=== PATIENT | male | born 1960 | race Caucasian/White ===

== ENCOUNTER 2018-09-29 18:26 | Emergency (ER) | payer BC ==
[2018-09-29] MEDS ORDERED: Azithromycin 250 MG Tab PO ONE (19:26)
[2018-09-29] MEDS ORDERED: Ondansetron 4 MG Tab.DIS PO ONE (19:28)
--- NOTE | 2018-09-29 22:24 | ER ---
REASON FOR CLINIC VISIT: Cough, fever, and myalgias. HISTORY OF PRESENT ILLNESS: This 57-year-old man began to feel generalized malaise approximately 5 days ago. He describes it as "feeling achy." He further went on to say that last night it hit him "big time" with headache, coughing which has been productive of increasing amounts of green, thick sputum. He has had post-tussive emesis x2, but he has also had nausea, particularly bothersome during coughing paroxysms. He denies any diarrhea. His biggest complaint has been of myalgias. He has had a fever of 100 to 101 at home. He has been taking NyQuil. He has no history of smoking. He has never had pneumonia in several years. PAST MEDICAL HISTORY: Unremarkable. CURRENT MEDICATIONS: None. ALLERGIES: To codeine and niacin. REVIEW OF SYSTEMS: Pertinent positives and negatives as in the HPI. PHYSICAL EXAMINATION: VITAL SIGNS: He is afebrile, pulse of 83, blood pressure 122/84, respiratory rate 16, O2 sats 93% and later 95%. HEENT: Head is normocephalic. No conjunctivitis is noted. TMs are normal. Oropharynx is normal. NECK: Supple. No adenopathy is noted. CHEST: He has good air exchange bilaterally. He did have a few rhonchi at his left base. No rales or wheezes were noted. CARDIAC: Regular rate without murmur. ABDOMEN: Soft and nontender. No hepatosplenomegaly. EXTREMITIES: Normal pulses. No edema. SKIN: No rashes. LABORATORY DATA: An influenza swab was obtained for influenza A and B and this was negative. FINAL DIAGNOSIS: Community-acquired pneumonia. PLAN: Z-Sofi [place] ODT 4 mg x1. I also recommended hot steamy showers and plenty of clear liquids. Tylenol and ibuprofen as needed. He should stay away from work for the next day or two. I also recommended Delsym [id number] for symptomatic coughing relief. He knows that should his symptoms worsen at any time, he should return or should they persist beyond after his course of antibiotics is completed, he should probably be rechecked as well. All questions were answered. He understands and agrees. MMODAL /[id number]
== END 2018-09-29 19:50 | disposition home or self-care (01) ==
LOC: JD.ED 18:26
DX: J18.9 Pneumonia, unspecified organism (principal); Z88.5 Allergy status to narcotic agent; Z88.8 Allergy status to other drugs, medicaments and biological substances
CPT/HCPCS: 87804; 99283; A9270

== ENCOUNTER 2020-05-21 11:11 | Emergency (ER) | payer BC ==
--- NOTE | 2020-05-21 11:17 | EDM.PDOC ---
ED HPI GENERAL MEDICAL PROBLEM - General Chief Complaint: Chest Pain Stated Complaint: CHEST PAIN Time Seen by Provider: 05/21/20 11:16 Source of Information: Reports: Patient History Limitations: Reports: No Limitations - History of Present Illness INITIAL COMMENTS - FREE TEXT/NARRATIVE: 59-year-old male presents to the ED for evaluation of central chest pain that started about 0800 hrs. this morning. He states he was already up for the day when the chest pressure discomfort came on and it lasted about an hour. He sat around and it seemed to gradually dissipate. He has a strong history of coronary disease having had 2 stents placed in [place] approximately 10 years ago and 3 stents placed in [place] about 5 years ago for total of 5 stents. He is on a low-cholesterol diet. He is no longer on a blood thinner. At present he is pain-free. Denies cough sputum production shortness of breath orthopnea or PND. Denies any burping or belching to relieve the discomfort. Rarely gets heartburn. No odynophagia while eating his breakfast after the pain started. Onset: Today, Sudden Onset Date: 05/21/20 Onset Time: 08:00 Duration: Hour(s):, Other (Pain-free at the time he was seen in the ED.) Location: Reports: Chest (Trolled chest discomfort with no radiation through to his back up into his neck or arms.). Denies: Head, Face Quality: Reports: Pressure Severity: Mild (Mild pressure discomfort rated at the most a 3 out of 10.) Improves with: Reports: Other (It went away on its own.) Worsens with: Reports: None, Other Context: Reports: Other. Denies: Activity, Exercise (Walking and moving did not seem to make the pain worse.), Lifting, Sick Contact, Trauma Associated Symptoms: Reports: Chest Pain (Spontaneous occurrence central chest pressure discomfort) Treatments [employer] INST[employer]ER: Reports: Other (see below) (His regular meds which she cannot remember all of.) Left Upper Chest Pain Score (Numeric/FACES): 0 - Related Data Allergies Allergy/AdvReac Type Severity Reaction Status Date / Time codeine Allergy Insomnia Verified 05/21/20 11:20 niacin Allergy Hyperactivi Verified 05/21/20 11:20 ty Home Meds: Home Meds Metoprolol Succinate 50 mg PO 05/21/20 [History] Rosuvastatin Calcium [Crestor] 40 mg PO DAILY 05/21/20 [History] lisinopriL [Lisinopril] 05/21/20 [History] Past Medical History - Past Health History Medical/Surgical History: Denies Medical/Surgical History Cardiovascular History: Reports: Hypertension, Stents (He had 2 stents placed approximately 10 years ago in [place] and 3 more stents placed in [place] approximately 5 years ago at [facility] Denies: ND Endocrine/Metabolic History: Reports: Obesity/BMI 30+ Social & Family History - Family History Family Medical History: Noncontributory - Living Situation & Occupation Living situation: Reports: with Significant Other Occupation: Employed ED ROS GENERAL - Review of Systems Review Of Systems: See Below Constitutional: Denies: Fever, Chills, Malaise, Weakness, Fatigue, Decreased Appetite, Weight Loss HEENT: Reports: Glasses Respiratory: Denies: Wheezing, Pleuritic Chest Pain, Cough, Sputum, Hemoptysis Cardiovascular: Reports: Chest Pain, Blood Pressure Problem, Dyspnea on Exertion (On occasion.). Denies: Claudication (See history of present illness), Edema, Lightheadedness, Orthopnea Endocrine: Reports: Fatigue (Side effect of medication.) GI/Abdominal: Reports: Other (Very rare). Denies: Constipation, Diarrhea, Decreased Appetite, Nausea ( esophageal reflux.), Vomiting : Reports: Frequency, Other (Nocturia usually x2) Musculoskeletal: Reports: Joint Pain (Occasional pain in knees hips back and neck.) Skin: Reports: No Symptoms Neurological: Reports: No Symptoms Psychiatric: Reports: No Symptoms Hematologic/Lymphatic: Reports: No Symptoms Immunologic: Reports: No Symptoms ED EXAM, GENERAL - Physical Exam Exam: See Below Exam Limited By: No Limitations General Appearance: Alert, WD/WN, No Apparent Distress, Other (Temperature is 36.3 pulse is 78 and sinus BP 158/91. Respiratory to 16 with pulse oximetry of 95% room air) Eye Exam: Bilateral Eye: Normal Inspection, PERRL Throat/Mouth: Normal Inspection, Normal Lips, Normal Teeth, Normal Oropharynx Head: Atraumatic, Normocephalic Neck: Normal Inspection, Supple, Non-Tender, Full Range of Motion. No: Carotid Bruit, Lymphadenopathy (L), Lymphadenopathy (R) Respiratory/Chest: No Respiratory Distress, Lungs Clear, Normal Breath Sounds, Chest Non-Tender Cardiovascular: Normal Peripheral Pulses, Regular Rate, Rhythm, No Edema, No Gallop, No Murmur, No Rub Peripheral Pulses: 2+: Carotid (L), Carotid (R), Posterior Tibial (L), Posterior Tibial (R), Dorsalis Pedis (L), Dorsalis Pedis (R) GI/Abdominal: Normal Bowel Sounds, Soft, Non-Tender, No Organomegaly, No Mass, Pelvis Stable, Other (Abdominal girth limits ability to palpate solid organs. He has a minimal umbilical hernia that causes him no discomfort.) Back Exam: Normal Inspection, Full Range of Motion. No: CVA Tenderness (L), CVA Tenderness (R) Extremities: Normal Inspection, Normal Range of Motion, Non-Tender, No Pedal Edema Neurological: Alert, Oriented, CN II-XII Intact, Normal Cognition Psychiatric: Normal Affect, Normal Mood Skin Exam: Warm, Dry, Intact, Normal Color, No Rash EKG INTERPRETATION EKG Date: 05/21/20 Time: 11:16 Rhythm: NSR Rate (Beats/Min): 78 [place]: Normal P-Wave: Present QRS: Other (Nonspecific intraventricular conduction delay) ST-T: Normal QT: Normal EKG Interpretation Comments: Normal ECG no signs of ischemia. Course - Vital Signs Last Recorded V/S: Last Vital Signs Temp 36.3 C 05/21/20 11:16 Pulse 78 05/21/20 11:16 Resp 16 05/21/20 11:16 BP 158/91 H 05/21/20 11:16 Pulse Ox - Orders/Labs/Meds Orders: Active Orders 24 hr Category Date Time Status EKG 12 Lead [EKG Documentation Completion] [RC] STAT Care 05/21/20 11:46 Active Chest 1V Frontal [CR] Stat Exams 05/21/20 11:33 Taken Labs: Laboratory Tests 05/21/20 05/21/20 05/21/20 Range/Units 11:25 11:25 11:25 WBC 6.94 (4.23-9.07) K/mm3 RBC 5.36 (4.63-6.08) M/mm3 Hgb 16.4 (13.7-17.5) gm/dl Hct 49.0 (40.1-51.0) % MCV 91.4 (79.0-92.2) fl MCH 30.6 (25.7-32.2) pg MCHC 33.5 (32.2-35.5) g/dl RDW Std Deviation 43.5 (35.1-43.9) fL Plt Count 213 (163-337) K/mm3 MPV 10.1 (9.4-12.3) fl Neut % (Auto) 59.7 (34.0-67.9) % Lymph % (Auto) 28.1 (21.8-53.1) % [place] % (Auto) 9.9 (5.3-12.2) % Eos % (Auto) 1.9 (0.8-7.0) Baso % (Auto) 0.3 (0.1-1.2) % Neut # (Auto) 4.14 (1.78-5.38) K/mm3 Lymph # (Auto) 1.95 (1.32-3.57) K/mm3 [place] # (Auto) 0.69 (0.30-0.82) K/mm3 Eos # (Auto) 0.13 (0.04-0.54) K/mm3 Baso # (Auto) 0.02 (0.01-0.08) K/mm3 PT 10.6 (9.7-12.0) SECONDS INR 0.99 APTT 25 (22-31) SECONDS Sodium 141 (136-145) mEq/L Potassium 3.8 (3.5-5.1) mEq/L Chloride 105 (98-107) mEq/L Carbon Dioxide 25 (21-32) mEq/L Anion Gap 14.8 (5-15) BUN 15 (7-18) mg/dL Creatinine 1.1 (0.7-1.3) mg/dL Est Cr Clr Drug Dosing 74.09 mL/min Estimated GFR (MDRD) > 60 (>60) mL/min BUN/Creatinine Ratio 13.6 L (14-18) Glucose 119 H (74-106) mg/dL Calcium 8.6 (8.5-10.1) mg/dL Magnesium 1.9 (1.8-2.4) mg/dl Total Bilirubin 0.4 (0.2-1.0) mg/dL AST 16 (15-37) U/L ALT 30 (16-63) U/L Alkaline Phosphatase 69 (46-116) U/L CK-MB (CK-2) 1.6 (0-3.6) ng/ml Troponin I < 0.017 (0.00-0.056) ng/mL C-Reactive Protein 0.2 (<1.0) mg/dL NT-Pro-B Natriuret Pep (0-125) pg/mL Total Protein 6.8 (6.4-8.2) g/dl Albumin 3.8 (3.4-5.0) g/dl Globulin 3.0 gm/dL Albumin/Globulin Ratio 1.3 (1-2) Cholesterol 148 (<200) mg/dL LDL Cholesterol Direct 76 (<100) mg/dL HDL Cholesterol 45.0 (40-59) mg/dL 05/21/20 Range/Units 11:25 WBC (4.23-9.07) K/mm3 RBC (4.63-6.08) M/mm3 Hgb (13.7-17.5) gm/dl Hct (40.1-51.0) % MCV (79.0-92.2) fl MCH (25.7-32.2) pg MCHC (32.2-35.5) g/dl RDW Std Deviation (35.1-43.9) fL Plt Count (163-337) K/mm3 MPV (9.4-12.3) fl Neut % (Auto) (34.0-67.9) % Lymph % (Auto) (21.8-53.1) % [place] % (Auto) (5.3-12.2) % Eos % (Auto) (0.8-7.0) Baso % (Auto) (0.1-1.2) % Neut # (Auto) (1.78-5.38) K/mm3 Lymph # (Auto) (1.32-3.57) K/mm3 [place] # (Auto) (0.30-0.82) K/mm3 Eos # (Auto) (0.04-0.54) K/mm3 Baso # (Auto) (0.01-0.08) K/mm3 PT (9.7-12.0) SECONDS INR APTT (22-31) SECONDS Sodium (136-145) mEq/L Potassium (3.5-5.1) mEq/L Chloride (98-107) mEq/L Carbon Dioxide (21-32) mEq/L Anion Gap (5-15) BUN (7-18) mg/dL Creatinine (0.7-1.3) mg/dL Est Cr Clr Drug Dosing mL/min Estimated GFR (MDRD) (>60) mL/min BUN/Creatinine Ratio (14-18) Glucose (74-106) mg/dL Calcium (8.5-10.1) mg/dL Magnesium (1.8-2.4) mg/dl Total Bilirubin (0.2-1.0) mg/dL AST (15-37) U/L ALT (16-63) U/L Alkaline Phosphatase (46-116) U/L CK-MB (CK-2) (0-3.6) ng/ml Troponin I (0.00-0.056) ng/mL C-Reactive Protein (<1.0) mg/dL NT-Pro-B Natriuret Pep 32 (0-125) pg/mL Total Protein (6.4-8.2) g/dl Albumin (3.4-5.0) g/dl Globulin gm/dL Albumin/Globulin Ratio (1-2) Cholesterol (<200) mg/dL LDL Cholesterol Direct (<100) mg/dL HDL Cholesterol (40-59) mg/dL - Radiology Interpretation Free Text/Narrative:: 59-year-old male presents to the ED for evaluation of central chest pressure discomfort that he developed about 0800 hrs. this morning. He was already up for the day when the pressure discomfort came on and he was not exerting himself at that time. He states the pressure lasted about an hour and then gradually dissipated and upon arrival in the ED he is pain-free. He mentioned this to his girlfriend and to his children on the phone this morning and they have essentially forced him to come to the ED for further evaluation. Patient has a strong history of coronary disease having had 2 stents placed in [place] about 10 years ago and 3 more stents placed in [place] about 5 years ago. No recent changes to his medications and he reports he has been compliant with meds. He is fairly obese but denies any significant problems with reflux. I suspect he may have a hiatal hernia. Upon arrival in the ED he is pain-free. Lungs are clear to all station percussion he is in sinus rhythm and his ECG shows no signs of ischemia. Plan will be routine lab work to include cardiac markers since it has been about 3-1/2 almost 4 hours since initial onset of chest discomfort. Of note the patient did not take any nitroglycerin for pain this morning. - Re-Assessments/Exams Free Text/Narrative Re-Assessment/Exam: 05/21/20 11:55 chest x-ray done portable technique reveals moderate cardiomegaly and diffuse vascular congestion pattern. No pleural effusions no pneumothorax. 05/21/20 12:21 Labs reveal a normal white count at 6.94. The auto differential shows 60% neutrophils. Hemoglobin is 16.4 with hematocrit of 49.0 suggesting mild hemoconcentration. Platelet count is normal at 213,000. PT is 10.6 with an INR of 0.99. PTT is 25. Sodium is 141 with a potassium of 3.8. Chloride 105 with a bicarb of 25. Anion gap is 14.8. BUN is 15 with a creatinine 1.1. GFR is greater than 60. Glucose is 119 calcium is 8.6 magnesium is 1.9 liver function normal. CK-MB fraction is 1.6 and troponin I is less than 0.017. C- reactive protein is 0.2. BNP is 32. Total protein is 6.8 with an albumin fraction of 3.8. Total cholesterol is 148 with an LDL cholesterol of 76 and an HDL cholesterol of 45 05/21/20 12:24 I discussed the findings with the patient. He remains asymptomatic. My impression is likely esophageal spasm from reflux during the night for which she is asymptomatic. He finds certain foods do bother him. I suggest that if symptoms persist then he might want to take Pepcid 20 mg every night at bedtime. However today he is released with no restrictions and no change in medications. Departure - Departure Time of Disposition: 12:25 Disposition: Home, Self-Care 01 Reason for Transfer *Q: Other Condition: Fair Clinical Impression: Non-cardiac chest pain, Gastroesophageal reflux disease Instructions: Food Choices for Gastroesophageal Reflux Disease, Adult, Gastroesophageal Reflux Disease, Adult, [id number] Referrals: Jasmyne Mckinney PA-C [Primary Care Provider] - Forms: ED Department Discharge Additional Instructions: Evaluation in the emergency room today in regards to central chest pressure discomfort that came on about 0800 hrs. this morning and persisted for about an hour before it let up and stayed away. With your strong history of coronary disease having 5 stents placed over the last 10 years it was felt prudent to come to the ED for further evaluation which I agree with. ECG done did not show any signs of acute ischemia or heart attack. Chest x-ray shows an enlarged heart but otherwise no other abnormalities lab test revealed no evidence of heart related illness with cardiac markers being less than 0. In fact all of your labs were normal. Cholesterol was also done as it was being requested by Jasmyne Harrington your physician bookkeeping assistant. Even though this was a nonfasting lab test your cholesterol is excellent and no further change in medicine is indicated at this time. At this time I suspect your transient chest pain was due to spasm of the food pipe likely due to mild reflux that occurs during the night during sleep. This is a common occurrence and since the food pipe sits right behind the heart it mimics a heart attack to a [place]. Similar symptoms persist I would suggest purchasing Pepcid 20 mg tablets [id number] and take 1 every night at bedtime to reduce acid secretion during the night and potential reflux. No changes in medications to be made at this time Sepsis Event Note (ED) - Focused Exam Vital Signs: Vital Signs Temp Pulse Resp BP 05/21/20 11:16 36.3 C 78 16 158/91 H - My Orders Last 24 Hours: My Active Orders 05/21/20 11:33 Chest 1V Frontal [CR] Stat 05/21/20 11:46 EKG 12 Lead [EKG Documentation Completion] [RC] STAT - Assessment/Plan Last 24 Hours: My Active Orders 05/21/20 11:33 Chest 1V Frontal [CR] Stat 05/21/20 11:46 EKG 12 Lead [EKG Documentation Completion] [RC] STAT
--- NOTE | 2020-05-21 12:26 | CR ---
Chest: Portable view of the chest was obtained. Comparison: Prior chest x-ray of 12/31/10. Heart is enlarged. Upper mediastinum is within normal limits. Pulmonary vessels are slightly congested. Lungs otherwise are clear. Minimal scoliosis is noted within the spine. Impression: 1. Cardiomegaly and mild pulmonary vascular congestion. There is pulmonary vascular congestion is believed to be chronic. Diagnostic code #3 This report was dictated in MDT
== END 2020-05-21 12:37 | disposition home or self-care (01) ==
LOC: JD.ED 11:11
DX: K21.9 Gastro-esophageal reflux disease without esophagitis (principal); I10 Essential (primary) hypertension; E66.9 Obesity, unspecified; Z68.32 Body mass index [BMI] 32.0-32.9, adult; Z88.5 Allergy status to narcotic agent; Z88.1 Allergy status to other antibiotic agents; Z79.899 Other long term (current) drug therapy
CPT/HCPCS: 36415; 71045; 71045-26; 80053; 82465; 82553; 83718; 83721; 83735; 83880; 84484; 85025; 85610; 85730; 86140; 93005; 93010; 99284; 99285-25

== ENCOUNTER 2022-05-21 20:01 | Emergency (ER) | payer BC ==
[2022-05-21] MEDS ORDERED: Ondansetron 4 MG/2 ML SDV IVPUSH ONE (21:33)
[2022-05-21] MEDS ORDERED: HYDROmorphone 0.5 MG/0.5 ML Syringe IVPUSH ONE (21:33)
[2022-05-21] MEDS ORDERED: Heparin Sodium 5,000 Units/ML Vial IVPUSH STA (21:53)
[2022-05-21] MEDS ORDERED: Nitroglycerin 2% Oint 1 GM UD Packet TOP STA (21:55)
[2022-05-21] MEDS ORDERED: Sodium Chloride 0.9% 1,000 ML IV SCH (22:00)
[2022-05-21] MEDS ORDERED: Heparin Sodium/D5W 25,000 UNITS/500 ML BAG IV SCH (22:00)
[2022-05-21] MEDS ORDERED: Iopamidol 755 Mg/ML 100 ML Bottle IVPUSH ONE (22:11)
[2022-05-21] MEDS ORDERED: Sodium Chloride 0.9% 100 ML IV SCH (22:15)
[2022-05-21] MEDS ORDERED: Acetaminophen 325 MG Tab PO ONE (23:36)
== END 2022-05-22 00:28 ==
LOC: JD.ED 20:01 → MERGE 20:01 → JD.ED 05-22 00:28
DX: I20.9 Angina pectoris, unspecified (principal); E78.00 Pure hypercholesterolemia, unspecified; I10 Essential (primary) hypertension; E66.9 Obesity, unspecified; Z68.33 Body mass index [BMI] 33.0-33.9, adult; Z88.5 Allergy status to narcotic agent; Z88.1 Allergy status to other antibiotic agents; Z79.899 Other long term (current) drug therapy; Z95.5 Presence of coronary angioplasty implant and graft
CPT/HCPCS: 36415; 71045; 71275; 74175; 80053; 83880; 84484; 85025; 85379; 85610; 85730; 93005; 96365; 96366; 96375; 99285; A9270; J1170; J1644; J2405; J7030; Q9967

== ENCOUNTER 2023-01-19 19:46 | Emergency (ER) | payer BC ==
[2023-01-19 21:10] LABS: CORONAVIRUS COVID-19 NAA NEGATIVE (NEGATIVE)
[2023-01-19] MEDS ORDERED: Amoxicillin/Clavulanate K 875-125 MG Tab PO ONE (23:46)
== END 2023-01-20 | disposition home or self-care (01) ==
LOC: JD.ED 19:46
DX: J32.9 Chronic sinusitis, unspecified (principal); I10 Essential (primary) hypertension; E66.9 Obesity, unspecified; Z68.35 Body mass index [BMI] 35.0-35.9, adult; E78.00 Pure hypercholesterolemia, unspecified; I25.10 Atherosclerotic heart disease of native coronary artery without angina pectoris; Z88.1 Allergy status to other antibiotic agents; Z88.5 Allergy status to narcotic agent; Z20.822 Contact with and (suspected) exposure to COVID-19
CPT/HCPCS: 0241U; 36415; 71045; 80053; 83690; 84484; 85025; 93005; 99284; A9270; 93010